=== PATIENT | female | born 1990 | race Caucasian/White ===

== ENCOUNTER 2020-12-04 20:23 | Emergency (ER) | payer SELFPAY ==
[~2020-12-04] VITALS: Ht 154.9 cm; Wt 75.3 kg
[2020-12-04 20:29] VITALS: BP 128/89
[2020-12-04] MEDS ORDERED: ACETAMINOPHEN EXTRA STRENGTH 500 MG TAB PO ONE (20:50)
[2020-12-04 21:21] VITALS: BP 128/89
== END 2020-12-04 21:20 | disposition home or self-care (01) ==
LOC: MED 20:23
DX: S29.012A Strain of muscle and tendon of back wall of thorax, initial encounter (principal); R51.9 Headache, unspecified; V49.9XXA Car occupant (driver) (passenger) injured in unspecified traffic accident, initial encounter; Y93.89 Activity, other specified; Y92.89 Other specified places as the place of occurrence of the external cause; Y99.8 Other external cause status
CPT/HCPCS: 71045; 99283